=== PATIENT | female | born 1985 ===

== ENCOUNTER 2019-07-12 19:53 | Emergency (ER) | payer BC ==
[2019-07-12 20:10] VITALS: BP 146/90; PULSE 94
--- NOTE | 2019-07-12 20:16 | EDM.PDOC ---
ED HPI GENERAL MEDICAL PROBLEM - General Chief Complaint: Cardiovascular Problem Stated Complaint: HEART FLUTTER Time Seen by Provider: 07/12/19 20:10 - History of Present Illness INITIAL COMMENTS - FREE TEXT/NARRATIVE: 33-year-old female presents emergency room with fluttering sensation in her chest.. Started this morning she had just E sensation across the top of her chest that went into her left arm was not associated with any breathing difficulty shortness of breath no chest pain no chest pressure. She's never had anything like this in the past she was advised to come in by her father who has a history of atrial fibrillation. - Related Data Allergies Allergy/AdvReac Type Severity Reaction Status Date / Time No Known Allergies Allergy Verified 07/12/19 20:09 Home Meds: Home Meds . [No Known Home Meds] 07/12/19 [History] Past Medical History HEENT History: Reports: Impaired Vision, Other (See Below) Other HEENT History: weas glasses Genitourinary History: Reports: STD, Other (See Below) Other Genitourinary History: HPV IMMIGRATION CONSULTANT History: Reports: , Other (See Below) Other IMMIGRATION CONSULTANT History: dysplagia with pre-cancerous/abnormal cervical biopsy. - Infectious Disease History Infectious Disease History: Reports: Chicken Pox - Past Surgical History Oncologic Surgical History: Reports: Other (See Below) ED ROS GENERAL - Review of Systems Review Of Systems: See Below Constitutional: Reports: No Symptoms HEENT: Reports: No Symptoms Respiratory: Reports: No Symptoms Cardiovascular: Reports: No Symptoms Endocrine: Reports: No Symptoms GI/Abdominal: Reports: No Symptoms ED EXAM, GENERAL - Physical Exam Exam: See Below General Appearance: Alert, WD/WN Head: Atraumatic, Normocephalic Neck: Normal Inspection, Supple, Non-Tender, Full Range of Motion. No: Lymphadenopathy (L), Lymphadenopathy (R), Thyromegaly Respiratory/Chest: No Respiratory Distress, Lungs Clear, Normal Breath Sounds Cardiovascular: Regular Rate, Rhythm, No Edema, No Murmur Extremities: Normal Inspection, Non-Tender, Pedal Edema (Trace but she says this is normal) EKG INTERPRETATION EKG Date: 07/12/19 Rhythm: NSR [place]: Normal P-Wave: Present QRS: Normal ST-T: Normal QT: Normal MO/PQ Interval: Normal Comparison: NA - No Prior EKG EKG Interpretation Comments: Normal EKG Course - Vital Signs Last Recorded V/S: Last Vital Signs Temp 36.6 C 07/12/19 20:06 Pulse 94 07/12/19 20:06 Resp 16 07/12/19 20:06 BP 146/90 H 07/12/19 20:06 Pulse Ox 100 07/12/19 20:06 - Orders/Labs/Meds Orders: Active Orders 24 hr Category Date Time Status EKG 12 Lead [EKG Documentation Completion] [RC] STAT Care 07/12/19 20:16 Active Labs: Laboratory Tests 07/12/19 07/12/19 Range/Units 20:29 20:29 WBC 8.18 (3.98-10.04) K/mm3 RBC 4.23 (3.98-5.22) M/mm3 Hgb 13.3 (11.2-15.7) gm/dl Hct 39.0 (34.1-44.9) % MCV 92.2 (79.4-94.8) fl MCH 31.4 (25.6-32.2) pg MCHC 34.1 (32.2-35.5) g/dl RDW Std Deviation 39.8 (36.4-46.3) fL Plt Count 222 (182-369) K/mm3 MPV 9.0 L (9.4-12.3) fl Neutrophils % (Manual) 57 (40-60) % Band Neutrophils % 0 (0-10) % Lymphocytes % (Manual) 39 (20-40) % Atypical Lymphs % 0 % Monocytes % (Manual) 3 (2-10) % Eosinophils % (Manual) 1 (0.7-5.8) % Basophils % (Manual) 0 L (0.1-1.2) Platelet Estimate Adequate Plt Morphology Comment Normal RBC Morph Comment Normal Sodium 139 (136-145) mEq/L Potassium 3.7 (3.5-5.1) mEq/L Chloride 104 (98-107) mEq/L Carbon Dioxide 27 (21-32) mEq/L Anion Gap 11.7 (5-15) BUN 16 (7-18) mg/dL Creatinine 0.8 (0.55-1.02) mg/dL Est Cr Clr Drug Dosing 96.36 mL/min Estimated GFR (MDRD) > 60 (>60) mL/min BUN/Creatinine Ratio 20.0 H (14-18) Glucose 80 (74-106) mg/dL Calcium 8.8 (8.5-10.1) mg/dL Magnesium 1.8 (1.8-2.4) mg/dl - Re-Assessments/Exams Free Text/Narrative Re-Assessment/Exam: 07/12/19 21:25 No ectopy was she was here in the emergency department magnesium was borderline low we'll start her on mag ox recommend starting some daily calcium and see how she does she like to hold off on a monitor at this point which I thinks reasonable. Departure - Departure Time of Disposition: 21:26 Disposition: Home, Self-Care 01 Clinical Impression: Palpitations with regular cardiac rhythm Referrals: Ca Barnhart PA-C [Primary Care Provider] - Forms: ED Department Discharge Additional Instructions: Return to the emergency room with any questions problems or worsening symptoms. Follow-up with your regular provider in one week. electronic assembler group leader some [id number] magnesium oxide 400 mg take 1 daily. Start calcium supplements as this may help as well this works better if taken with vitamin D. - My Orders Last 24 Hours: My Active Orders 07/12/19 20:16 EKG 12 Lead [EKG Documentation Completion] [RC] STAT - Assessment/Plan Last 24 Hours: My Active Orders 07/12/19 20:16 EKG 12 Lead [EKG Documentation Completion] [RC] STAT
== END 2019-07-12 22:00 | disposition home or self-care (01) ==
LOC: JD.ED 19:53
DX: R00.2 Palpitations (principal)
CPT/HCPCS: 36415; 80048; 83735; 85007; 85027; 93005; 99285-25